=== PATIENT | female | born 1995 | race Caucasian/White ===

== ENCOUNTER 2021-12-27 17:32 | Emergency (ER) | payer MEDICAID, SELFPAY ==
--- NOTE | ~2021-12-27 | XR_ITS ---
EXAMINATION: LEFT FOREARM AND LEFT ELBOW. CLINICAL INFORMATION: Limited range of motion. COMPARISON: None. TECHNIQUE: Left forearm 2 views and left elbow one view. FINDINGS: Left forearm: There is no visible fracture or bony abnormality. The soft tissues are normal. Left elbow: There is normal radial ulnar and humeral alignment. No visible acute fracture, dislocation or subluxation seen. No abnormal joint effusion or soft tissue swelling. XR/XR forearm LT 2V IMPRESSION: Unremarkable left forearm and left elbow.
--- NOTE | ~2021-12-27 | XR_ITS ---
EXAMINATION: LEFT FOREARM AND LEFT ELBOW. CLINICAL INFORMATION: Limited range of motion. COMPARISON: None. TECHNIQUE: Left forearm 2 views and left elbow one view. FINDINGS: Left forearm: There is no visible fracture or bony abnormality. The soft tissues are normal. Left elbow: There is normal radial ulnar and humeral alignment. No visible acute fracture, dislocation or subluxation seen. No abnormal joint effusion or soft tissue swelling. XR/XR elbow LT min 3V IMPRESSION: Unremarkable left forearm and left elbow.
[2021-12-27 17:49] VITALS: BP 145/75; PULSE 89; RESP 18; TEMP 37; O2SAT 100; BMI 33.6
== END 2021-12-27 20:54 | disposition left against medical advice (07) ==
PROVIDERS: Emergency Provider Emergency Medicine; PCP Nurse Practitioner Family
DX: M79.602 Pain in left arm (principal); R22.31 Localized swelling, mass and lump, right upper limb
CPT/HCPCS: 73080; 73090; 99281; 99283